=== PATIENT | male | born 2000 | race Caucasian/White ===

== ENCOUNTER → 2020-04-17 | Outpatient (CLI) | payer OTHER ==
[~2020-04-17] MED LIST: ACET-1600 PO
== END | disposition home or self-care (01) ==
LOC: CLISVCS 09:39
PROVIDERS: ATTEND Anesthesiology
DX: Z20.828 Contact with and (suspected) exposure to other viral communicable diseases (principal)
CPT/HCPCS: 87635

== ENCOUNTER 2020-04-20 07:01 | Day surgery (SDC) | payer OTHER ==
[~2020-04-20] VITALS: Ht 188 cm; Wt 64.0 kg
[~2020-04-20 07:01] MED LIST changes: +BUPIVACAINE/PF 0.25% ONE; +BUPIVACAINE/PF 0.5% ONE; +LIDOCAINE/PF 1%, 30ML ONE
[2020-04-20 07:51] VITALS: BP 121/80
[2020-04-20] MEDS ORDERED: LACTATED RINGERS 1,000 ML IV SCH (08:00)
[2020-04-20] MEDS ORDERED: CHLORHEXIDINE 15 ML UDC MM ONE (08:00)
[2020-04-20] MEDS ORDERED: LIDOCAINE-MPF 1%, 2ML INFIL ONE (08:00)
[2020-04-20] MEDS ORDERED: MIDAZOLAM 1 MG/ML, 2ML ONE (08:22)
[2020-04-20] MEDS ORDERED: FENTANYL PF 250 MCG/5ML ONE (08:22)
[2020-04-20] MEDS ORDERED: DIPHENHYDRAMINE 50 MG/ML, 1ML IVPush PRN (08:30)
[2020-04-20] MEDS ORDERED: hydrALAzine 20 MG/ML, 1ML IV PRN (08:30)
[2020-04-20] MEDS ORDERED: PROMETHAZINE 25 MG/ML, 1ML IVPush PRN (08:30)
[2020-04-20] MEDS ORDERED: HYDROmorphone 1 MG/ML, 1ML INJ IVPush PRN (08:30)
[2020-04-20] MEDS ORDERED: ACETAMINOPHEN 325 MG TABLET PO PRN (08:30)
[2020-04-20] MEDS ORDERED: METOCLOPRAMIDE 5 MG/ML, 2ML IVPush PRN (08:30)
[2020-04-20] MEDS ORDERED: MEPERIDINE/PF 25MG/0.5ML IVPush PRN (08:30)
[2020-04-20] MEDS ORDERED: DIAZEPAM 5 MG/ML, 2ML IVPush PRN (08:30)
[2020-04-20] MEDS ORDERED: ONDANSETRON 2MG/ML, 2ML IVPush PRN (08:30)
[2020-04-20] MEDS ORDERED: LABETALOL 5MG/ML, 20ML IV PRN (08:30)
[2020-04-20] MEDS ORDERED: FENTANYL PF 100 MCG/2ML IV PRN (08:30)
[2020-04-20] MEDS ORDERED: OXYcodone 5 MG/5 ML ORAL.SOL UDC PO PRN (08:30)
[2020-04-20 08:38] LABS: AMPHETAMINE SCREEN, URINE Negative (Negative); BARBITURATE SCREEN, URINE Negative (Negative); BENZODIAZEPINE SCREEN, URINE Negative (Negative); CANNABINOID SCREEN, URINE Positive (Negative); COCAINE SCREEN, URINE Negative (Negative); METHADONE SCREEN, URINE Negative (Negative); OPIATE SCREEN, URINE Negative (Negative)
[2020-04-20] MEDS ORDERED: ACETAMINOPHEN 650 MG/20.3 ML UDC ONE (09:32)
[2020-04-20] MEDS ORDERED: OXYcodone 5 MG/5 ML ORAL.SOL UDC ONE (09:33)
[2020-04-20] MEDS ORDERED: CEFAZOLIN 1,000 MG ONE (10:05)
[2020-04-20] MEDS ORDERED: PROPOFOL 10 MG/ML, 20ML ONE (10:05)
[2020-04-20] MEDS ORDERED: KETOROLAC 30 MG/1 ML ONE (10:05)
[2020-04-20] MEDS ORDERED: ONDANSETRON 2MG/ML, 2ML ONE (10:05)
[2020-04-20] MEDS ORDERED: DEXAMETHASONE 4 MG/ML, 1ML ONE (10:05)
[2020-04-20] MEDS ORDERED: HYDR-3240 PO (10:11)
== END 2020-04-20 10:55 | disposition home or self-care (01) ==
LOC: OUT 07:01
PROVIDERS: ATTEND Surgery Surgery of the Hand
DX: S62.316A Displaced fracture of base of fifth metacarpal bone, right hand, initial encounter for closed fracture (principal); F12.90 Cannabis use, unspecified, uncomplicated; F17.210 Nicotine dependence, cigarettes, uncomplicated; X58.XXXA Exposure to other specified factors, initial encounter; Y93.89 Activity, other specified; Y92.89 Other specified places as the place of occurrence of the external cause; Y99.8 Other external cause status; Z79.899 Other long term (current) drug therapy; Z72.89 Other problems related to lifestyle
CPT/HCPCS: 26608; 73120; 76000; 80307; C1713; J0690; J1100; J1885; J2250; J2405; J2704; J3010